=== PATIENT | male | born 1975 | race Caucasian/White ===

== ENCOUNTER → 2016-09-29 | Outpatient (CLI) | payer OTHER ==
[~2016-09-29] MED LIST: CYM60
[2016-09-29 17:54] LABS: THYROID STIMULATING HORMONE 0.304 uIu/ml (0.300-4.500)
[2016-09-29 18:34] LABS: RATIO 1035.7 mcg/mg (0-30.0)
[2016-09-30 07:36] LABS: ESTIMATED AVERAGE GLUCOSE 186 mg/dl; HA1C FLAG Normal (Normal)
== END | disposition home or self-care (01) ==
LOC: C.LAB1850 16:18
PROVIDERS: ATTEND Internal Medicine Endocrinology, Diabetes & Metabolism
DX: E10.9 Type 1 diabetes mellitus without complications (principal); R80.9 Proteinuria, unspecified; E55.9 Vitamin D deficiency, unspecified

== ENCOUNTER 2019-05-05 23:46 | Inpatient (IN) ==
--- OUTSIDE RECORDS SUMMARY | 2019-05-05 23:48 | External Medical Summary | Continuity of Care Document ---
:1975 Author Name Peyton Leiva, Provider Address Unavailable Unavailable , Care Team Providers Name Role Phone Unavailable Unavailable Unavailable Chloé Lockett Unavailable [email or web address]., Bulmaro Unavailable [email or web address] Levar Leiva Unavailable [email or web address] Domitila CARRANZA Unavailable Unavailable Unavailable Unavailable Unavailable Problems Depression (311) (F32.9) History of Alcohol use disorder (V49.89) Status: Resolved Hypertension (401.9) (I10) Diabetic nephropathy associated with type 1 diabetes m ellitus (250.41) (E10.21) Albuminuria (791.0) (R80.9) Diabetic peripheral neuropathy associate d with type 1 diabetes mellitus (250.61) (E10.42) History of diabetic ulcer of foot (V12.29) (Z86.31) Status: Resolved Loss of sensation (782.0) (R20.0) Proliferative diabetic retinopathy assoc iated with type 1 diabetes mellitus (250.51) (E10.3599) Abnormal finding on thyroid function test (794.5) (R94.6) Vitamin D deficiency (268.9) (E55.9) Diabetes mellitus type 1 (250.01) (E10.9) Allergies and Adverse Reactions No Known Drug Allergies (Allergy) Medications HumaLOG 100 UNIT/ML Subcutaneous Solutio n; 1.3 UNITS PER HOUR VIA INSULIN PUMP, 1 UNIT FOR EVRY 7 CARBS AT MEAL TIME, MAX DOSE IS 70 UNITS , M.D. Start: 29-Mar-2018 Refills: 0 3 ML Vial HumaLOG 100 UNIT/ML Subcutaneous Solutio n; Use per sliding scale 50 units daily as directed - (8 u +SS breakfast, 6 u+SS at lunch, 10 u +SS at supper) BRADFORD Pierce Start: 06-Aug-2011 Quantity: 20 Refills: 6 busPIRone HCl - 5 MG Oral Tablet; Take 1 tablet daily , M.D. Start: 29-Sep-2016 Refills: 0 Effexor XR 150 MG Oral Capsule Extended Release 24 Hour; 1 daily along with 75 mg to equal total daily dose of 225 mg , M.D. Refills: 0 OneTouch Delica Lancets Fine MISC; Testing 6 times daily. Cali Ba Start: 08-Aug-2013 Quantity: 3 100 EA Box Refills: 5 OneTouch Ultra Blue In Vitro Strip; Testing 6 times da jamar. Cali Arango SMirtha Start: 08-Aug-2013 Quantity: 3 100 EA Bottle Refills: 5 Lindsay Contour Next Test STRP; Test 4 arnold es daily for use with Medtronic insulin pump Cali Arango Start: 01-Aug-2015 Quantity: 4 100 Strip Box Refills: 3 NovoLOG 100 UNIT/ML Subcutaneous Solution; SAMPLE Cali Arango Start: 27-Nov-2016 Quantity: 2 10 ML Vial Refills: 0 Augmentin 875-125 MG TABS; TAKE 1 TABLET TWICE DAILY UNTIL G ONE. , M.DMirtha Start: 29-Mar-2018 Refills: 0 Carvedilol 25 MG Oral Tablet; TAKE 1 TABLET TWICE DAILY WITH MEALS. , M.D. Start: 29-Mar-2018 Refills: 0 Venlafaxine HCl ER 75 MG Oral Capsule Ex tended Release 24 Hour; TAKE ONCE DAILY IN COMBINATION WITH 150MG DOSE , M.D. Start: 29-Mar-2018 Refills: 0 Lindsay Microlet Lancets MISC; test 4 times a day Dwaine Arango Start: 01-Aug-2015 Quantity: 4 100 Miscellaneous Pa ckage Refills: 3 Lisinopril 40 MG Oral Tablet; TAKE 1 TABLET DAILY. Hi Cristobal Start: 23-Jul-2016 Quantity: 90 Refills: 3 Vitamin D (Ergocalciferol) 1.25 MG (5000 0 UT) Oral Capsule; TAKE 1 CAPSULE WEEKLY WITH THE LARGEST MEAL OF THE DAY Cali Arango Start: 017 Quantity: 5 Refills: 11 Lantus 100 UNIT/ML Subcutaneous Solution; INJECT 45-50 UNITS AT 8 P.M. Cali Arango Start: 06-Aug-2011 Refills: 5 10 ML Vial Tresiba FlexTouch 200 UNIT/ML Subcutaneo us Solution Pen-injector; INJECT 26 UNITS AT BEDTIME Cali Start: 29-Mar-2018 Refills: 0 3 x 3 ML Pen Procedures Procedures not documented Immunizations Pneumococcal polysaccharide vaccine, 23 valent On: 01-Sep-19 12 14:07 Lot #: [id number], [employer] Influenza Comments:06/27/2016-n o Social History - Smoking Status Smoker. current status unknown Plan of Treatment Planned Observations Planned Goals not documented Results No Known Results Results not documented Encounters Appointment; Faisal Arango M.D. 31-May-2018 15:00 Encounter Diagnosis: Problem not documented
--- OUTSIDE RECORDS SUMMARY | 2019-05-05 23:49 | External Medical Summary | Continuity of Care Document ---
:1975 Author Name Peyton Leiva, Provider Address Unavailable Unavailable , Care Team Providers Name Role Phone Unavailable Unavailable Unavailable Chloé Lockett Unavailable [email or web address] Arango M.D., S. Unavailable [email or web address] Levar Leiva Unavailable [email or web address] Domitila CARRANZA Unavailable Unavailable Unavailable Unavailable Unavailable Problems Diabetes mellitus type 1 (250.01) (E10.9) Depression (311) (F32.9) History of Alcohol use [...] (794.5) (R94.6) Vitamin D deficiency (268.9) (E55.9) Allergies and Adverse Reactions No Known Drug Allergies (Allergy) Medications Lantus 100 UNIT/ML Subcutaneous Solution; INJECT 45-50 UNITS AT 8 P.M. Cali Arango Faisal SMirtha Start: 06-Aug-2011 Refills: 5 10 ML Vial HumaLOG 100 UNIT/ML Subcutaneous Solutio n; Use per sliding scale 50 units daily as directed - (8 u +SS breakfast, 6 u+SS at lunch, 10 u +SS at supper) BRADFORD Pierce Start: 06-Aug-2011 Quantity: 20 Refills: 6 OneTouch Delica Lancets Fine MISC; Testing 6 times daily. Cali Ba SMirtha Start: 08-Aug-2013 Quantity: 3 100 EA Box Refills: 5 OneTouch Ultra Blue In Vitro Strip; Testing 6 times da jamar. Cali Arango Faisal SMirtha Start: 08-Aug-2013 Quantity: 3 100 EA Bottle Refills: 5 Effexor XR 150 MG Oral Capsule Extended Release 24 Hour; 1 daily along with 75 mg to equal total daily dose of 225 mg , M.D. Refills: 0 Lindsay Contour Next Test STRP; Test 4 arnold es daily for use with Medtronic insulin pump Cali Arango SMirtha Start: 01-Aug-2015 Quantity: 4 100 Strip Box Refills: 3 Lindsay Microlet Lancets MISC; test 4 times a day Dwaine Arango SMirtha Start: 01-Aug-2015 Quantity: 4 100 Miscellaneous Pa ckage Refills: 3 Lisinopril 40 MG Oral Tablet; TAKE 1 TABLET DAILY. Hi Cristobal Start: 23-Jul-2016 Quantity: 90 Refills: 3 Vitamin D (Ergocalciferol) 1.25 MG (5000 0 UT) Oral Capsule; TAKE 1 CAPSULE WEEKLY WITH THE LARGEST MEAL OF THE DAY Cali Arango Start: 017 Quantity: 5 Refills: 11 busPIRone HCl - 5 MG Oral Tablet; Take 1 tablet daily , M.D. Start: 29-Sep-2016 Refills: 0 NovoLOG 100 UNIT/ML Subcutaneous Solution; SAMPLE Cali Arango SMirtha Start: 27-Nov-2016 Quantity: 2 10 ML Vial Refills: 0 Augmentin 875-125 MG TABS; TAKE 1 TABLET TWICE DAILY UNTIL G ONE. , M.D. Start: 29-Mar-2018 Refills: 0 Carvedilol 25 MG Oral Tablet; TAKE 1 TABLET TWICE DAILY WITH MEALS. , M.D. Start: 29-Mar-2018 Refills: 0 Tresiba FlexTouch 200 UNIT/ML Subcutaneo us Solution Pen-injector; INJECT 26 UNITS AT BEDTIME , M.D. Start: 29-Mar-2018 Refills: 0 3 x 3 ML Pen HumaLOG 100 UNIT/ML Subcutaneous Solutio n; 1.3 UNITS PER HOUR VIA INSULIN PUMP, 1 UNIT FOR EVRY 7 CARBS AT MEAL TIME, MAX DOSE IS 70 UNITS , M.D. Start: 29-Mar-2018 Refills: 0 3 ML Vial Venlafaxine HCl ER 75 MG Oral Capsule Ex tended Release 24 Hour; TAKE ONCE DAILY IN COMBINATION WITH 150MG DOSE , M.D. Start: 29-Mar-2018 Refills: 0 Procedures Procedures not documented Immunizations Pneumococcal polysaccharide [...]
[2019-05-05] MEDS ORDERED: LORazepam 1 MG/2 ML VIAL IV STA (23:54)
[2019-05-06 00:14] LABS: Basophils # (auto) 0.02 K/uL (0-0.2); Basophils % (auto) 0.2 %; Eosinophils # (auto) 0.05 K/uL (0-0.5); Eosinophils % (auto) 0.6 %; Hematocrit (blood only) 41.4 % (42-52); Hemoglobin 15.5 g/dL (14.0-18.0); Immature Granulocytes # (auto) 0.02 K/uL (0.00-0.02); Immature Granulocytes % (auto) 0.2 %; Lymphocytes # (auto) 2.75 K/uL (1.2-3.4); Lymphocytes % (auto) 30.3 %; Mean Corpuscular Hemoglobin 32.6 pg (25-34); Mean Corpuscular Hgb Conc 37.4 g/dL (32-36); Mean Platelet Volume 8.3 fL (7.4-10.4); Monocytes # (auto) 0.88 K/uL (0.11-0.59); Monocytes % (auto) 9.7 %; Neutrophils # (auto) 5.36 K/uL (1.4-6.5); Platelet Count 269 K/uL (130-400); RDW Coefficient of Variation 12.7 % (11.5-14.5); RDW Standard Deviation 40.9 fL (36.4-46.3); Red Blood Count 4.76 M/uL (4.7-6.1); White Blood Count 9.08 K/uL (4.8-10.8)
[2019-05-06 00:30] LABS: Alanine Aminotransferase 32 U/L (12-78); Albumin Level 3.9 gm/dl (3.4-5.0); Aspartate Aminotransferase 29 U/L (15-37); BUN Creatinine Ratio 12.4 (10-20); Blood Urea Nitrogen 11 mg/dl (7-18); Calcium 9.4 mg/dl (8.5-10.1); Carbon Dioxide 23 mmol/L (21-32); Chloride 85 mmol/L (98-107); Est GFR (African American) 122.8; Glucose 155 mg/dl (70-99); Potassium 3.4 mmol/L (3.5-5.1); Sodium 122 mmol/L (136-145)
[2019-05-06] MEDS ORDERED: SODIUM CHLORIDE 0.9% 1000ML 1,000 ML IV ONE (00:32)
[2019-05-06 00:41] LABS: Acetaminophen < 2 ug/ml (10-30); Albumin Globulin Ratio 0.9 (0.9-2); Alkaline Phosphatase 61 U/L (45-117); Bilirubin,Total 0.6 mg/dl (0.2-1); Globulin 4.2 gm/dl (2.5-4.0); Salicylate < 1.7 mg/dl (2.8-20); Thyroid Stimulating Hormone 0.575 uIu/ml (0.300-4.500); Total Protein 8.1 gm/dl (6.4-8.2); Troponin I < 0.015 ng/ml (0-0.045)
[2019-05-06] MEDS ORDERED: LORazepam 1 MG/2 ML VIAL IV STA (00:56)
[2019-05-06 01:09] LABS: Magnesium 1.7 mg/dl (1.8-2.4)
[2019-05-06 01:23] LABS: Appearance Urine Clear (Clear); Bacteria Urine Automated Negative (Negative); Bilirubin Urine Negative (Negative); Blood Urine 1+ (Negative); Color Urine Yellow; Glucose Urine UA Trace (Negative); Ketones Urine 1+ (Negative); Leukocyte Esterase Urine Negative (Negative); Nitrite Urine Negative (Negative); Protein Urine 2+ (Negative); RBC Urine Automated 0-4 /hpf (0-4); Specific Gravity Urine 1.007 (1.000-1.030); Urobilinogen Urine Negative (Negative); WBC Urine Automated 0 /hpf (0-5)
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
--- NOTE | 2019-05-06 02:03 | Emergency Department Note ---
History of Present Illness General Chief complaint: Anxiety Stated complaint: PANIC ATTACK Time Seen by Provider: 05/05/19 23:51 Source: patient Mode of arrival: ambulatory Limitations: no limitations History of Present Illness Maximum Pain Intensity: 9 This patient is a 44-year-old male who presents the emergency department for evaluation of depression/anxiety. The patient states that he has a longstanding history of anxiety and depression which have been worsening over the past 3 weeks. He is on Effexor and Wellbutrin with poor control of his symptoms. He does not see a psychiatrist regularly. He was scheduled to see [facility] recently but was unable to make it due to bad weather. He has had one prior psychiatric hospitalization here several years ago. His states that he does not leave the house for days or weeks at a time and is extremely meier. He has not been able to go to work for 3 weeks due to his depression. He was supposed to go back tomorrow and has been having panic attacks due to anxiety regarding going to work. He admits to drinking 15-30 beers per day. He states that he had 4-5 beers today. He states that he is able to go without drinking and does not have any physical symptoms of withdrawal. He denies any drug use. Patient admits to some passive suicidal thoughts, but has no plan and states that he would never kill himself, as he has 2 cousins who committed suicide and would not put his family through that. Patient is a diabetic and states that his sugars have been well controlled. He has been eating and drinking normally. He states he has been having multiple panic attacks per day, where he is unable to control his breathing. He now has pain in the center of his chest and has been vomiting and dry heaving. Home Medications Home Medications Medication Instructions Recorded Confirmed Type alprazolam 0.5 mg PO TID PRN 05/06/19 05/06/19 History bupropion HCl 150 mg PO DAILY 05/06/19 05/06/19 History buspirone 10 mg PO TID 05/06/19 05/06/19 History carvedilol 25 mg PO BID 05/06/19 05/06/19 History hydrochlorothiazide 25 mg PO DAILY 05/06/19 05/06/19 History insulin aspart U-100 [Novolog 0 unit SUBCUT AC 05/06/19 05/06/19 History Flexpen U-100 Insulin] insulin degludec [Tresiba 32 unit SUBCUT HS 05/06/19 05/06/19 History FlexTouch U-200] lisinopril 20 mg PO DAILY 05/06/19 05/06/19 History venlafaxine 75 mg PO DAILY 05/06/19 05/06/19 History venlafaxine 150 mg PO DAILY 05/06/19 05/06/19 History Allergies Allergy/AdvReac Type Severity Reaction Status Date / Time No Known Allergies Allergy Mild Verified 05/06/19 01:50 Past Med/Surg History Medical History Alcohol abuse Anxiety Depression Hypertension Type 1 diabetes Surgical History (Updated 05/06/19 @ 01:44 by Geovanna Renteria DO) History of eye surgery History of foot surgery Family History Other Anxiety Depression Suicidal behavior Social History Preferred Language: Danish Communication Ability: Effective Beliefs That Will Affect Care: None Current Living Situation: Spouse Feels Safe at Home: Yes Smoking Status: Never smoker Hx Alcohol Use: Yes Hx Substance Use: No Review of Systems A total of 10 systems reviewed and were otherwise negative Physical Exam Vital Signs Vital Signs - 24 hr 05/05/19 23:51 05/06/19 00:28 05/06/19 01:07 Temperature 36.3 C L Temperature Source Oral Pulse Rate 101 H Pulse Rate [Bilateral] 98 H 91 H Pulse Rhythm [Bilateral] Regular Regular Pulse Strength [Bilateral] Normal Normal Respiratory Rate 40 H 24 18 Respiratory Effort / Characteristics Spontaneous Short of Breath Non-Labored Spontaneous Non-Labored Spontaneous Respiratory Depth Normal Normal Respiratory Pattern Regular Blood Pressure 173/92 H Blood Pressure [Right Arm] 172/96 H Blood Pressure Mean 119 Blood Pressure Mean [Right Arm] 121 Blood Pressure Position Sitting Blood Pressure Position [Right Arm] Lying Pulse Oximetry 100 100 100 Oxygen Delivery Method Room Air Room Air Room Air Sepsis Recent Fever Within 48 Hours No Sepsis Action Taken by Nursing No Action Required VITALS: Vitals are noted on the nurse's note and reviewed by myself. Vital signs stable. GENERAL: This is a 44-year-old male, hyperventilating, dry heaving and sitting at the side of the bed. SKIN: The skin was without rashes. EARS: External auditory canals clear, tympanic membranes pearly wells without erythema or effusion bilaterally. EYES: Pupils equal round and reactive to light and accommodation. Conjunctive are moderately injected. NOSE: Patent, turbinates without inflammation or discharge. MOUTH: Mucous membranes moist. Tonsils are not enlarged. Pharynx without erythema or exudate. NECK: Supple without nuchal rigidity. No lymphadenopathy. HEART: Regular rate and rhythm without murmurs gallops or rubs. LUNGS: Clear to auscultation bilaterally without wheezes, rales or rhonchi. ABDOMEN: Positive bowel sounds x 4. Soft, nontender to palpation. MUSCULOSKELETAL: Full range of motion throughout. Strength 5/5 throughout. NEURO: Patient was alert and oriented to person place and time. No focal neurological deficits. Course Consultations Consultation #1: Dr. Renteria [facility] Hospitalist Administered Medications Discontinued Medications Diazepam (Valium) 10 mg PO NOW ONE Stop: 05/06/19 02:37 Last Admin: 05/06/19 03:14 Dose: 10 mg Documented by: [id number] Lorazepam (Ativan) 1 mg in 2 mls @ 2 mls/min IV NOW STA Stop: 05/05/19 23:55 Last Admin: 05/06/19 00:12 Dose: 2 mls/min Documented by: [id number] Sodium Chloride (Nss 1000ml) 1,000 mls @ 999 mls/hr IV .Q1H1M ONE Stop: 05/06/19 01:32 Last Infusion: 05/06/19 01:28 Dose: 0 mls/hr Documented by: [id number] Admin: 05/06/19 00:34 Dose: 999 mls/hr Documented by: [id number] Lorazepam (Ativan) 1 mg in 2 mls @ 2 mls/min IV NOW STA Stop: 05/06/19 00:57 Last Admin: 05/06/19 01:07 Dose: 2 mls/min Documented by: [id number] Multivitamins 10 ml/ Thiamine HCl 100 mg/ Folic Acid 1 mg/Sodium Chloride 1,011.2 mls @ 500 mls/hr IV .Q2H2M ONE Stop: 05/06/19 05:01 Last Infusion: 05/06/19 05:12 Dose: 0 mls/hr Documented by: [id number] Admin: 05/06/19 03:07 Dose: 500 mls/hr Documented by: [id number] Magnesium Sulfate/Dextrose (Magnesium Sulfate / D5w) 1 gm in 100 mls @ 100 mls/hr IV Q1H OSVALDO Stop: 05/06/19 04:59 Last Infusion: 05/06/19 05:12 Dose: 0 mls/hr Documented by: [id number] Admin: 05/06/19 04:20 Dose: 100 mls/hr Documented by: [id number] Infusion: 05/06/19 04:07 Dose: 100 mls/hr Documented by: [id number] Admin: 05/06/19 03:07 Dose: 100 mls/hr Documented by: [id number] Potassium Chloride (Klor-Con M20) 40 meq PO NOW STA Stop: 05/06/19 02:37 Last Admin: 05/06/19 03:07 Dose: 40 meq Documented by: [id number] Medical Decision Making Differential Diagnosis Differential diagnosis includes depression, anxiety, suicidal ideation, alcohol abuse, alcohol withdrawal, DKA, alcoholic ketoacidosis, electrolyte abnormality, among others. Home Medications Current Medication List: was personally reviewed by me Laboratory Data Attestation: I reviewed the patient's lab results. Result diagrams: 05/06/19 00:00 05/06/19 02:47 Lab Results 05/06/19 05/06/19 05/06/19 Range/Units 00:00 00:00 00:00 WBC 9.08 (4.8-10.8) K/uL RBC 4.76 (4.7-6.1) M/uL Hgb 15.5 (14.0-18.0) g/dL Hct 41.4 L (42-52) % MCV 87.0 (80-100) fL MCH 32.6 (25-34) pg MCHC 37.4 H (32-36) g/dL RDW Std Deviation 40.9 (36.4-46.3) fL RDW Coeff of Hill 12.7 (11.5-14.5) % Plt Count 269 (130-400) K/uL MPV 8.3 (7.4-10.4) fL Immature Gran % (Auto) 0.2 % Neut % (Auto) 59.0 % Lymph % (Auto) 30.3 % [place] % (Auto) 9.7 % Eos % (Auto) 0.6 % Baso % (Auto) 0.2 % Immature Gran # (Auto) 0.02 (0.00-0.02) K/uL Neut # (Auto) 5.36 (1.4-6.5) K/uL Lymph # (Auto) 2.75 (1.2-3.4) K/uL [place] # (Auto) 0.88 H (0.11-0.59) K/uL Eos # (Auto) 0.05 (0-0.5) K/uL Baso # (Auto) 0.02 (0-0.2) K/uL Sodium 122 L (136-145) mmol/L Potassium 3.4 L (3.5-5.1) mmol/L Chloride 85 L (98-107) mmol/L Carbon Dioxide 23 (21-32) mmol/L Anion Gap 14.0 H (3-11) BUN 11 (7-18) mg/dl Creatinine 0.85 (0.6-1.4) mg/dl Est Cr Clr Drug Dosing Not Reportable Est GFR ( Amer) 122.8 Est GFR (Non-Af Amer) 106.0 BUN/Creatinine Ratio 12.4 (10-20) Glucose 155 H (70-99) mg/dl Calcium 9.4 (8.5-10.1) mg/dl Magnesium 1.7 L (1.8-2.4) mg/dl Total Bilirubin 0.6 (0.2-1) mg/dl AST 29 (15-37) U/L ALT 32 (12-78) U/L Alkaline Phosphatase 61 (45-117) U/L Troponin I < 0.015 (0-0.045) ng/ml Total Protein 8.1 (6.4-8.2) gm/dl Albumin 3.9 (3.4-5.0) gm/dl Globulin 4.2 H (2.5-4.0) gm/dl Albumin/Globulin Ratio 0.9 (0.9-2) TSH 0.575 (0.300-4.500) uIu/ml Urine Color Urine Appearance (Clear) Urine pH (4.5-7.5) Ur Specific [place] (1.000-1.030) Urine Protein (Negative) Urine Glucose (UA) (Negative) Urine Ketones (Negative) Urine Blood (Negative) Urine Nitrite (Negative) Urine Bilirubin (Negative) Urine Urobilinogen (Negative) Ur Leukocyte Esterase (Negative) Urine WBC (Auto) (0-5) /hpf Urine RBC (Auto) (0-4) /hpf U Hyaline Cast (Auto) (0-5) /lpf U Epithel Cells (Auto) (0-5) /lpf Urine Bacteria (Auto) (Negative) Salicylates < 1.7 L (2.8-20) mg/dl Urine Opiates Screen (Neg) Ur Methadone, Qual (Neg) Acetaminophen < 2 L (10-30) ug/ml Urine Barbiturates (Neg) Ur Phencyclidine (PCP) (Neg) U Amphetamin/Meth Scrn (Neg) MDMA (Ecstasy) Screen (Neg) U Benzodiazepines Scrn (Neg) Ur Cocaine Metabolite (Neg) U Marijuana (THC) Screen (Neg) Ethyl Alcohol mg/dL (0-3) mg/dl 05/06/19 05/06/19 05/06/19 Range/Units 00:00 01:05 01:05 WBC (4.8-10.8) K/uL RBC (4.7-6.1) M/uL Hgb (14.0-18.0) g/dL Hct (42-52) % MCV (80-100) fL MCH (25-34) pg MCHC (32-36) g/dL RDW Std Deviation (36.4-46.3) fL RDW Coeff of Hill (11.5-14.5) % Plt Count (130-400) K/uL MPV (7.4-10.4) fL Immature Gran % (Auto) % Neut % (Auto) % Lymph % (Auto) % [place] % (Auto) % Eos % (Auto) % Baso % (Auto) % Immature Gran # (Auto) (0.00-0.02) K/uL Neut # (Auto) (1.4-6.5) K/uL Lymph # (Auto) (1.2-3.4) K/uL [place] # (Auto) (0.11-0.59) K/uL Eos # (Auto) (0-0.5) K/uL Baso # (Auto) (0-0.2) K/uL Sodium (136-145) mmol/L Potassium (3.5-5.1) mmol/L Chloride (98-107) mmol/L Carbon Dioxide (21-32) mmol/L Anion Gap (3-11) BUN (7-18) mg/dl Creatinine (0.6-1.4) mg/dl Est Cr Clr Drug Dosing Est GFR ( Amer) Est GFR (Non-Af Amer) BUN/Creatinine Ratio (10-20) Glucose (70-99) mg/dl Calcium (8.5-10.1) mg/dl Magnesium (1.8-2.4) mg/dl Total Bilirubin (0.2-1) mg/dl AST (15-37) U/L ALT (12-78) U/L Alkaline Phosphatase (45-117) U/L Troponin I (0-0.045) ng/ml Total Protein (6.4-8.2) gm/dl Albumin (3.4-5.0) gm/dl Globulin (2.5-4.0) gm/dl Albumin/Globulin Ratio (0.9-2) TSH (0.300-4.500) uIu/ml Urine Color Yellow Urine Appearance Clear (Clear) Urine pH 6.0 (4.5-7.5) Ur Specific [place] 1.007 (1.000-1.030) Urine Protein 2+ H (Negative) Urine Glucose (UA) Trace H (Negative) Urine Ketones 1+ H (Negative) Urine Blood 1+ H (Negative) Urine Nitrite Negative (Negative) Urine Bilirubin Negative (Negative) Urine Urobilinogen Negative (Negative) Ur Leukocyte Esterase Negative (Negative) Urine WBC (Auto) 0 (0-5) /hpf Urine RBC (Auto) 0-4 (0-4) /hpf U Hyaline Cast (Auto) 1-5 (0-5) /lpf U Epithel Cells (Auto) 5-10 H (0-5) /lpf Urine Bacteria (Auto) Negative (Negative) Salicylates (2.8-20) mg/dl Urine Opiates Screen Neg (Neg) Ur Methadone, Qual Neg (Neg) Acetaminophen (10-30) ug/ml Urine Barbiturates Neg (Neg) Ur Phencyclidine (PCP) Neg (Neg) U Amphetamin/Meth Scrn Neg (Neg) MDMA (Ecstasy) Screen Pos H (Neg) U Benzodiazepines Scrn Neg (Neg) Ur Cocaine Metabolite Neg (Neg) U Marijuana (THC) Screen Neg (Neg) Ethyl Alcohol mg/dL 100.0 H (0-3) mg/dl Imaging Data Attestation: I personally reviewed and interpreted this imaging study as follows: My Impression: CHEST 1 VIEW: Multiple scattered metallic foreign bodies noted. No pulmonary infiltrates. No evidence of heart failure. Blood Pressure Blood Pressure Findings: Elevated blood pressure Blood Pressure Disposition: further management by hospitalist MDM Narrative The patient is a 44-year-old male who presents today complaining of anxiety and panic attacks. Patient has a history of depression and anxiety which is very poorly controlled. On presentation he is hyperventilating and extremely anxious. He was given IV Ativan with some improvement and I was able to talk with the patient about his symptoms. He admits to depression, anxiety and alcoholism and would like to get help for this. Labs revealed hyponatremia with sodium of 122, chloride 85 and anion gap of 14. Patient will need to be admitted medically for the hyponatremia with subsequent psychiatric consultation. The case was discussed with the [facility] hospitalist, Dr. Renteria, who agreed to evaluate the patient for further care. Impression & Plan Hyponatremia, Depression, Alcohol abuse Discharge Plan Visit Data *Final* Discharge Date/Time: 05/06/19 01:58 Chief Complaint: Anxiety Stated Complaint: PANIC ATTACK ED Provider: Brittany Kay ED Midlevel Provider: Libertad Salinas Discharge Problem: Hyponatremia, Depression, Alcohol abuse Patient Disposition: Admitted As Inpatient Discharge Instructions Interventions: ED Discharge Assessment Last Done: 05/06/19 01:58 Discharge Problem: Depression Qualifiers: Depression Type: unspecified Qualified Code(s): F32.9 - Major depressive disorder, single episode, unspecified
[2019-05-06 02:04] LABS: Amphetamines+Metham, Urine Neg (Neg); Barbiturates, Urine Neg (Neg); Benzodiazepine, Urine Neg (Neg); Cocaine, Urine Neg (Neg); MDMA (Ecstacy), Urine Pos (Neg); Methadone, Urine Neg (Neg); Opiate, Urine Neg (Neg); Phencyclidine, Urine Neg (Neg)
[2019-05-06] MEDS ORDERED: DEXTROSE 50% 50 ML SYRINGE IV PRN (02:36)
[2019-05-06] MEDS ORDERED: diazePAM 5 MG TABLET PO ONE (02:36)
[2019-05-06] MEDS ORDERED: GLUCOSE 10 TABS/TUBE PO PRN (02:36)
[2019-05-06] MEDS ORDERED: POTASSIUM CHLORIDE 20 MEQ TABCR PO STA (02:36)
[2019-05-06] MEDS ORDERED: GLUCAGON FOR INJ 1 MG VIAL SQ PRN (02:36)
[2019-05-06] MEDS ORDERED: LORazepam 1 MG/2 ML VIAL IV PRN (02:36)
[2019-05-06] MEDS ORDERED: CARBOHYDRATES FOR HYPOGLYCEMIA PO PRN (02:36)
[2019-05-06] MEDS ORDERED: GLUCOSE 40% GEL 15 GM TUBE PO PRN (02:36)
[2019-05-06] MEDS ORDERED: MULTI-VITAMIN INFUSION 10 ML, THIAMINE HCL 100 MG, FOLIC ACID 1 MG in SODIUM CHLORIDE 0... IV ONE (03:00)
[2019-05-06] MEDS: MAGNESIUM SULFATE / D5W 1 GM/100 ML BAG IV SCH ×2 (03:07→04:20)
[2019-05-06 03:19] LABS: BUN Creatinine Ratio 12.8 (10-20); Calcium 8.4 mg/dl (8.5-10.1); Creatinine Clr Calc Pharmacy 147.3 ml/min; Est GFR (African American) 127.2; Est GFR (Non-African American) 109.8; Potassium 3.4 mmol/L (3.5-5.1)
[2019-05-06 03:38] LABS: Folate (Folic Acid) 13.69 ng/ml (>5.38)
[2019-05-06 07:16] LABS: BUN Creatinine Ratio 14.2 (10-20); Calcium 8.1 mg/dl (8.5-10.1); Creatinine Clr Calc Pharmacy 174.1 ml/min; Est GFR (African American) 136.3; Est GFR (Non-African American) 117.6; Potassium 3.9 mmol/L (3.5-5.1)
--- NOTE | 2019-05-06 07:32 | XRay Report ---
XR chest 1V portable HISTORY: Atypical chest pain COMPARISON: None. FINDINGS: Multiple metallic BBs seen scattered throughout the chest. The lungs are clear. The heart i s normal in size. No pleural effusions. No pneumothorax. No rib fractures. IMPRESSION: No acute process. ACT 112: Negative or not required by law. Electronically signed by: Eric Trevizo M.D. 05/06/2019 7:31 AM
[2019-05-06] MEDS: hydroCHLOROthiazide 25 MG TAB PO SCH (08:10)
[2019-05-06] MEDS: lisinopriL 20 MG TAB PO SCH (08:10)
[2019-05-06] MEDS: carvediloL 25 MG TAB PO SCH ×2 (08:10→19:15)
[2019-05-06] MEDS: BuPROPion XL 150 MG TABCR PO SCH (08:10)
[2019-05-06] MEDS: VENLAFAXINE HCL XR 150 MG CAPXR PO SCH (08:10)
[2019-05-06] MEDS: VENLAFAXINE HCL XR 75 MG CAPXR PO SCH (08:11)
[2019-05-06] MEDS: INSULIN ASPART 100 UNITS/ML 3 ML PEN SC SCH ×4 (09:04→21:22)
[2019-05-06 11:20] LABS: BUN Creatinine Ratio 13.1 (10-20); Calcium 8.9 mg/dl (8.5-10.1); Creatinine Clr Calc Pharmacy 140.1 ml/min; Est GFR (African American) 124.6; Est GFR (Non-African American) 107.5; Potassium 4.3 mmol/L (3.5-5.1)
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
[2019-05-06 17:06] LABS: BUN Creatinine Ratio 12.6 (10-20); Calcium 9.2 mg/dl (8.5-10.1); Creatinine Clr Calc Pharmacy 129.1 ml/min; Est GFR (African American) 120.5; Potassium 3.9 mmol/L (3.5-5.1)
[2019-05-06] MEDS ORDERED: INSULIN GLARGINE SOLOSTAR 100 UNITS/ML 3 ML PEN SC SCH (21:00)
--- NOTE | 2019-05-06 22:28 | Hospitalist Progress Note ---
Date of Service May 06, 2019 Assessment & Plan (1) Hyponatremia: Patient presents with sodium = 122. Neurologically intact, no seizures. Suspect hyponatremia secondary to low solute intake/beer portal yenni as patient regularly consumes 15-30 beers per day. Admit to PCU Check urine and serum osmolality, urine sodium -BMP every 6 hours -Patient administered 1 L of normal saline while in the ER. Will repeat chemistry panel upon arrival to the floor (2) Alcohol abuse: Patient with longstanding history of heavy alcohol use. 15-30 beers per day, last drink was this evening. Alcohol level = 100. No history of withdrawal or seizure. Suspect that his heavy drinking is largely due to his severe anxiety. His reports that he needs to have 3-4 beers before even leaving the house in order to feel comfortable. Presently he is afebrile, hemodynamically stable. No signs of active withdrawal. -We will administer 10 mg of Valium upon arrival to the floor AWSS active protocol scale -Check B12 and folate levels Banana bag x1 now Thiamine 100 mg p.o. daily and folate (3) Anxiety: Patient with longstanding history of anxiety. Feels that his treatment regimen at this time is inadequate. Reports he is compliant with medications We will hold alprazolam for now as patient is on alcohol withdrawal protocol and will be receiving Ativan as needed Continue bupropion 150 mg p.o. daily Continue buspirone 10 mg p.o. 3 times daily Continue venlafaxine 150 mg p.o. daily +75 mg p.o. daily Hydroxyzine 25 mg p.o. 3 times daily as needed -We will send MTHFR gene. Patient with longstanding history of anxiety which seems to be fairly treatment resistant. Also with strong family history of anxiety. MTHFR mutations may be associated with treatment resistant anxiety. May benefit from methionine and B vitamin supplementation -Psychiatry consultation. Assistance appreciated. (4) Depression: As above, patient with longstanding history of depression. He feels that he is not properly controlled at this time with his current regimen Continue bupropion, buspirone, venlafaxine at home doses -Psychiatry evaluation (5) Type 1 diabetes: Patient with type 1 diabetes. Blood sugar = 155 at present Continue insulin 32 units nightly Insulin sliding scale Continue to monitor blood sugar (6) Hypertension: Blood pressure mildly elevated at 173/92 in setting of anxiety, possible withdrawal. Continue carvedilol 25 mg p.o. twice daily Continue HCTZ 25 mg p.o. twice daily Continue lisinopril 20 mg p.o. daily Continue to monitor F/E/N -banana bag x1 L, replete potassium and magnesium, repeat labs every 4 hours, diabetic diet ProphylaxisLovenox Codefull Dispositionadmit to PCU Results & Data Vital Signs (Past 12 Hours) Vital Signs Temp Pulse Resp BP Pulse Ox 05/06/19 19:53 36.8 C 88 17 164/93 H 95 05/06/19 15:29 36.8 C 86 18 165/97 H 97 05/06/19 11:19 36.9 C 89 18 130/81 96 PG Care Time/CCT Total # of Minutes Spent Total Time Spent with Patient: Total time spent is greater than 50% in coordination of care (as documented) at patient's floor/unit and/or counseling patient: (1) Depression Depression Type: unspecified Qualified Code(s): F32.9 - Major depressive disorder, single episode, unspecified (2) Type 1 diabetes Diabetes mellitus complication status: without complication Qualified Code(s): E10.9 - Type 1 diabetes mellitus without complications (3) Hypertension Hypertension type: essential hypertension Qualified Code(s): I10 - Essential (primary) hypertension
[2019-05-07] MEDS: lisinopriL 20 MG TAB PO SCH (07:17)
[2019-05-07] MEDS: hydroCHLOROthiazide 25 MG TAB PO SCH (07:18)
[2019-05-07] MEDS: BuPROPion XL 150 MG TABCR PO SCH (07:18)
[2019-05-07] MEDS: carvediloL 25 MG TAB PO SCH (07:19)
[2019-05-07] MEDS: VENLAFAXINE HCL XR 150 MG CAPXR PO SCH (07:20)
[2019-05-07] MEDS: VENLAFAXINE HCL XR 75 MG CAPXR PO SCH (07:22)
[2019-05-07] MEDS: INSULIN ASPART 100 UNITS/ML 3 ML PEN SC SCH ×2 (08:10→13:27)
[2019-05-07] MEDS ORDERED: THIAMINE HCL 100 MG TAB PO SCH (09:00)
[2019-05-07] MEDS ORDERED: FOLIC ACID 1 MG TAB PO SCH (09:00)
[2019-05-07 11:17] LABS: BUN Creatinine Ratio 11.7 (10-20); Calcium 8.6 mg/dl (8.5-10.1); Creatinine Clr Calc Pharmacy 127.3 ml/min; Est GFR (African American) 120.5; Potassium 4.2 mmol/L (3.5-5.1)
--- NOTE | 2019-05-10 08:30 | Discharge Summary ---
Date of Service May 07, 2019 Admission HPI Per Admitting Provider Farooq Parada is a 44-year-old male admitted medically on 05/05/2019 after presenting to the ED with a rather significant panic attack. Patient has a significant history of alcohol abuse, and was admitted medically with concern for alcohol withdrawal and hyponatremia. Psychiatric consultation was requested to evaluate patient for anxiety. Patient's case was reviewed and discussed during morning report with psychiatric nurse liaison and supervising psychiatrist. Patient is cooperative with psychiatric evaluation. He informs this provider that he began experiencing issues with his kidneys several months ago, which increased his symptoms of anxiety, therefore "the depression set in after." Patient has had to take several weeks off of work in order to manage his medical issues, and had been scheduled to return to work today. Patient states that last evening, he had experienced a rather significant panic attack, requesting EMS transport to the hospital when symptoms did not improve over the course of several hours. Patient states "I have never had a heart attack, but it felt like I was having a heart attack. My chest hurt, I could not catch her breath, I just felt like I was being constricted." Patient states that the symptoms lasted for 4 hours, before he was brought to the emergency room where he received Valium. Patient does question if this panic attack is in some way related to anticipation of scheduled return to work. Patient does describe symptoms of "socially related anxiety", he states that "even going to [facility], I get panicky. It takes a lot for me to convince myself to go places." Patient states that he often has little interest in doing things or attending events, but believes this is more related to anxiety than to depression, because "once I get there and really happy I went, it is just getting over the anxiety to go." Patient states that his symptoms of anxiety due to all the way back to [employer]. He reports that the depression has been more recent, believed to be within the last 15 years. Depressive symptoms include difficulty falling and staying asleep, and episodes of hopelessness and guilt. He states that in particular he feels guilty as "I have not been to work in 4 or 5 weeks." Patient does admit to episodes of passive suicidal ideation, which he reports he is easily able to push away. Patient states he has 2 cousins who have completed suicide, and "I know what that does to a family. I could not do it. I have a young granddaughter, and my ." Patient does admit that his alcohol use has been more extreme in the last sever al weeks. Patient reports that generally he may consume "2-3 beers, usually after work and dinner." He does admit to drinking alcohol on a daily basis regardless of the amount. More recently, patient states that he has been consuming 15-30 beers daily, noticing a correlation between his alcohol consumption and his mood. Patient states "I know it is hurting. I know what the issues are, I just cannot fix them by myself." Patient states he has never attended inpatient drug and alcohol rehabilitation, and is not interested in this option at this time due to work commitments. He does express interest in more information about outpatient drug and alcohol counseling and even possibly an intensive outpatient program to target his alcohol use. Patient does admit to periods of sobriety in the past, generally not longer than "1 to 2 weeks." Patient does recognize that his alcohol use is likely not helping his type 1 diabetes diagnosis as well. Pt denies SI, HI, SIB, A/V hallucinations, paranoia, yenni/hypomania, other symptoms more suggestive of a bipolar presentation, OCD, PTSD, eating disorder, and other specific psychiatric symptoms. Principal Diagnosis beer potomania Discharge Exam General: patient resting comfortably, NAD, non-toxic in appearance, AA&O x 4 Skin: warm, dry, intact, no rashes or lesions HEENT: NC/AT, PERRL, EOMI, anicteric sclera, conjunctiva without injection, external ear normal to inspection and nontender, nares patent, moist mucus membranes, dentition intact, no oropharyngeal lesions, neck supple, trachea midline, no LAD, no thyromegaly, no JVD Heart: +S1/S2, regular, no m/r/g Lungs: equal air entry bilaterally, no rales/rhonchi/wheezes Abd: +BS, soft, NT/ND, no masses/organomegaly/ascites Ext: warm, 2+ pulses in UE/LE bilaterally, no clubbing/cyanosis or edema Neuro: nonfocal, patient AA&O x 4, speech intact, no facial droop, moving all extremities on command with equal strength 5/5 Discharge Data Allergies Allergy/AdvReac Type Severity Reaction Status Date / Time No Known Allergies Allergy Mild Verified 05/06/19 01:50 Consultations 05/06/19 01:03 ED Decision to Admit Stat 05/06/19 02:36 Consult Psychiatry Routine Hospital Course (1) Hyponatremia: Patient presents with sodium = 122. Neurologically intact, no seizures. Suspect hyponatremia secondary to low solute intake/beer portal yenni as patient regularly consumes 15-30 beers per day. Admit to PCU -appears to be beer potomania. Will have patient take salt tablets at home and will recheck BMP within 1 week. Patient is not interested in inpatient drug and rehab for his alcoholism. D/W that thi likely attributed to poor diet. His sodium did improve with reinstituting a diet. (2) Alcohol abuse: Patient with longstanding history of heavy alcohol use. 15-30 beers per day, last drink was this evening. Alcohol level = 100. No history of withdrawal or seizure. Suspect that his heavy drinking is largely due to his severe anxiety. His reports that he needs to have 3-4 beers before even le aving the house in order to feel comfortable. Presently he is afebrile, hemodynamically stable. No signs of active withdrawal. -We will administer 10 mg of Valium upon arrival to the floor AWSS active protocol scale Thiamine 100 mg p.o. daily and folate (3) Anxiety: Patient with longstanding history of anxiety. Feels that his treatment regimen at this time is inadequate. Reports he is compliant with medications We will hold alprazolam for now as patient is on alcohol withdrawal protocol and will be receiving Ativan as needed Continue bupropion 150 mg p.o. daily Continue buspirone 10 mg p.o. 3 times daily Continue venlafaxine 150 mg p.o. daily +75 mg p.o. daily Hydroxyzine 25 mg p.o. 3 times daily as needed -We will send MTHFR gene. Patient with longstanding history of anxiety which seems to be fairly treatment resistant. Also with strong family history of anxiety. MTHFR mutations may be associated with treatment resistant anxiety. May benefit from methionine and B vitamin supplementation -Psychiatry consultation. Assistance appreciated. (4) Depression: As above, patient with longstanding history of depression. He feels that he is not properly controlled at this time with his current regimen Continue bupropion, buspirone, venlafaxine at home doses -Psychiatry evaluation (5) Type 1 diabetes: Patient with type 1 diabetes. Blood sugar = 155 at present Continue insulin 32 units nightly Insulin sliding scale Continue to monitor blood sugar (6) Hypertension: Blood pressure mildly elevated at 173/92 in setting of anxiety, possible withdrawal. Continue carvedilol 25 mg p.o. twice daily Continue HCTZ 25 mg p.o. twice daily Continue lisinopril 20 mg p.o. daily Continue to monitor Total Time Total Time Spent Total Time Spent (In Minutes): 32 Total Time Includes: Examination of the Patient, Discharge Planning and Medication Reconciliation Discharge Plan Discharge Items Patient Disposition: Home - Self-Care Reason For Visit: HYPONATREMIA Discharge Diagnosis: hyponatremia Activity: Resume your previous activity Non-emergency contact: Primary Care Provider Call non-emergency contact if: you have any medication questions Follow-up/Referrals: Charlie Maria M.D. [Primary Care Provider] - Diet: Regular Addtl Attending Provider Instructions: Primary recommendation is for inpatient D&A rehabilitation at time of discharge, which was refused. Back up plan: consider referrals for outpatient D&A counseling. In regard to acute management of his anxiety, would suggest hydroxyzine 25mg prn. Would advice against continuation of benzodiazepines until/unless you are able to demonstrate significant reduction in alcohol consumption. You were provided with education as to why benzodiazepines are contra indicated with alcohol use and verbalized understanding of this. You were also agreeable with titrating buspirone to 20mg TID, from his home dose of 15mg TID. Will defer major adjustments to his SNRI to his outpatient psychiatric provider. Recommend checking Blood work in 1 week. Check with PCP in 1 week, Pending Studies at Discharge: No Stand-Alone Forms: My [facility] [address] [employer], Smoking Cessation, Suicide Prevention Resources Medications and DC Order Prescriptions: New buspirone 5 mg Tablet 20 mg PO TID 30 Days Qty: 360 RF: 0 hydroxyzine HCl 25 mg Tablet 25 mg PO TID PRN (Reason: anxiety) Qty: 20 RF: 0 thiamine HCl (vitamin B1) [Vitamin B-1] 100 mg Tablet 100 mg PO QAM Qty: 10 RF: 0 folic acid 1 mg Tablet 1 mg PO QAM Qty: 10 RF: 0 sodium chloride 1 gram tablet 1,000 mg PO DAILY Qty: 14 RF: 0 Continued carvedilol 25 mg tablet 25 mg PO BID RF: 0 bupropion HCl 150 mg tablet extended release 24 hr 150 mg PO DAILY RF: 0 venlafaxine 75 mg capsule,extended release 24hr 75 mg PO DAILY RF: 0 lisinopril 20 mg tablet 20 mg PO DAILY RF: 0 venlafaxine 150 mg capsule,extended release 24hr 150 mg PO DAILY RF: 0 hydrochlorothiazide 25 mg tablet 25 mg PO DAILY RF: 0 Novolog Flexpen U-100 Insulin 100 unit/mL (3 mL) insulin pen 0 unit SUBCUT AC RF: 0 Tresiba FlexTouch U-200 200 unit/mL (3 mL) insulin pen 32 unit SUBCUT HS RF: 0 Discontinued alprazolam 0.5 mg tablet 0.5 mg PO TID PRN (Reason: Anxiety) RF: 0 buspirone 10 mg tablet 10 mg PO TID RF: 0 Discharge Orders: Discharge Order (Routine); Ordered 05/07/19 Ordered By: Victor Hugo Molina Admission Data Admit Date/Time: 05/06/19 01:30 Attending Provider: Victor Hugo Molina Admit Provider: Geovanna Renteria Primary Care Provider: Charlie Maria Other Providers: Geovanna Renteria ; Anette Urban Other Interventions: Discharge Summary Assessment (RN) Last Done: 05/07/19 13:41 DC Date/Time DO NOT enter until pt leaves facility: 05/07/19 14:18
[2019-05-12 12:12] LABS: MDA negative; MDEA negative; MDMA (Ecstasy) Urine, Confirm negative
== END 2019-05-07 14:18 | disposition home or self-care (01) | DRG 641 ==
LOC: ED 23:46 → SUATTDRO 05-06 01:30 → 2S 05-06 01:30